=== PATIENT | male | born 1990 | race Two or more races ===

== ENCOUNTER 2016-08-05 10:10 | Day surgery (SDC) | payer OTHER ==
[~2016-08-05 10:10] MED LIST: ACETAMINOPHEN 500 MG TAB PO ONE; PREGABALIN 150 MG CAP PO ONE; ceFAZolin 2 GM/DEXTROSE 100 ML IV ONE
[2016-08-05] MEDS ORDERED: ACETAMINOPHEN 500 MG TAB ONE (11:09)
[2016-08-05] MEDS ORDERED: PREGABALIN 150 MG CAP ONE (11:10)
[2016-08-05] MEDS ORDERED: CEFAZOLIN 2 GM/DEXTROSE/100 ML BAG IV ONE (11:11)
[2016-08-05] MEDS ORDERED: LIDOCAINE 1% 5 ML SDV ONE (11:11)
[2016-08-05] MEDS ORDERED: BUPIVACAINE/EPI 0.25% 30 ML SDV ONE (13:10)
[2016-08-05] MEDS ORDERED: MIDAZOLAM 2 MG/2 ML VIAL ONE (13:46)
[2016-08-05] MEDS ORDERED: LIDOCAINE 2% 100 MG/5 ML SYR IVP ONE (13:54)
[2016-08-05] MEDS ORDERED: DEXAMETHASONE 4 MG/ML VIAL ONE ×2 (13:54)
[2016-08-05] MEDS ORDERED: fentaNYL 100 MCG/2 ML INJ ONE ×2 (13:54→15:50)
[2016-08-05] MEDS ORDERED: LIDOCAINE 2% JELLY 5 ML TUBE ONE (13:54)
[2016-08-05] MEDS ORDERED: PROPOFOL/EMULSION 500 MG/50 ML BOTTLE IV ONE ×2 (13:54→14:55)
[2016-08-05] MEDS ORDERED: ONDANSETRON 4 MG/2 ML VIAL ONE (13:54)
[2016-08-05] MEDS ORDERED: PROPOFOL 200 MG/20 ML VIAL ONE ×3 (16:15→17:33)
[2016-08-05] MEDS ORDERED: morphINE *ANESTHESIA ONLY* 10 MG/ML VIAL ONE (16:57)
[2016-08-05] MEDS ORDERED: MEPERIDINE 25 MG/ML SYR ONE (18:11)
== END 2016-08-05 21:00 | disposition home or self-care (01) ==
LOC: FSGY 10:10
PROVIDERS: ATTEND Orthopaedic Surgery Sports Medicine
PROC: 0SQB4ZZ Repair Left Hip Joint, Percutaneous Endoscopic Approach (ICD-10-PCS; principal; 2016-08-05 12:45)
DX: M24.152 Other articular cartilage disorders, left hip (principal); E66.01 Morbid (severe) obesity due to excess calories; Z68.39 Body mass index [BMI] 39.0-39.9, adult
CPT/HCPCS: 29914; 29916; 76001; C1769; C1713; J0171; J0690; J1100; J2001; J2250; J2405; J2704; J3010